=== PATIENT | female | born 2000 | race Caucasian/White ===

== ENCOUNTER 2023-05-31 07:57 | Outpatient (CLI) | payer BC, SELFPAY ==
--- NOTE | 2023-05-31 08:15 | US_ITS ---
Final Report Patient: DEVYN ODELL Facility:?[facility] Patient ID:?[id number] Site Patient ID:?[id number]. Site :?2002 Study:?US OB Pelvis OB TV-05/31/2023 8:59:03 AM Ordering Physician:AMADA JULY Final Report: INDICATION: First trimester scan, establish dates. COMPARISON: None. TECHNIQUE: Real-time he-scale imaging of the pelvis was performed. FINDINGS: Sonographic imaging demonstrates a single living intrauterine gestation. The embryo demonstrates a regular cardiac rate measuring 176 beats per minute. The embryo`s crown-rump length measurement of 1.9 cm corresponds to a gestational age of 8 weeks 3 days with a sonographic due date of 01/07/2024. There is a normal-appearing yolk sac. There are no gross abnormalities noted within the embryo at this early state of development. The gestational sac has a normal appearance. There is no evidence of a perigestational hemorrhage. The amount of fluid within the sac appears appropriate for gestational age. The cervix is closed. The myometrium appears normal. The ovaries are of normal size. Corpus luteal cyst left ovary. There are no suspicious fluid collections noted in the cul-de-sac. IMPRESSION: Normal first trimester OB ultrasound exam. Gestational age calculated at 8 weeks 3 days with a sonographic due date of 01/07/2024. Dictated by Urbano Motta MD @ 05/31/2023 9:09:47 AM (Electronic Signature)
== END 2023-05-31 07:58 | disposition home or self-care (01) ==
LOC: US 07:59
PROVIDERS: Visit Provider Physician Assistant
DX: Z34.91 Encounter for supervision of normal pregnancy, unspecified, first trimester (principal)
CPT/HCPCS: 76817; 86703; 86706; 86803; 86850; 86900; 86901; 87086; 87340; 87491; 87591

== ENCOUNTER 2023-05-31 09:41 | Outpatient (CLI) | payer BC, SELFPAY ==
[2023-05-31 16:32] LABS: Chlamydia DNA Amplified* Not Detected (No Detected); GC DNA Amplified* Not Detected (No Detected)
== END 2023-05-31 09:42 | disposition home or self-care (01) ==
PROVIDERS: Visit Provider Physician Assistant
DX: Z34.91 Encounter for supervision of normal pregnancy, unspecified, first trimester (principal)
CPT/HCPCS: 86592; 86703; 86704; 86706; 86762; 86787; 86803; 86850; 86900; 86901; 87086; 87340; 87491; 87591

== ENCOUNTER 2023-07-08 09:03 | Outpatient (CLI) | payer BC, SELFPAY | END 2023-07-08 09:04 | disposition home or self-care (01) | PROVIDERS: Visit Provider Obstetrics & Gynecology | DX: Z34.91 Encounter for supervision of normal pregnancy, unspecified, first trimester (principal); Z3A.13 13 weeks gestation of pregnancy | CPT/HCPCS: 87086 ==

== ENCOUNTER 2023-07-13 13:33 | Outpatient (CLI) | payer BC, SELFPAY | END 2023-07-13 13:34 | disposition home or self-care (01) | LOC: NFLDREF 13:34 | PROVIDERS: Visit Provider Obstetrics & Gynecology | DX: R39.15 Urgency of urination (principal) | CPT/HCPCS: 87086 ==

== ENCOUNTER 2023-07-21 10:16 | Outpatient (CLI) | payer BC, SELFPAY | END 2023-07-21 10:17 | disposition home or self-care (01) | LOC: NFLDREF 10:17 | PROVIDERS: Visit Provider Obstetrics & Gynecology | DX: N39.0 Urinary tract infection, site not specified (principal) | CPT/HCPCS: 87086 ==

== ENCOUNTER 2023-07-26 13:41 | Outpatient (CLI) | payer BC, SELFPAY ==
--- NOTE | 2023-07-26 14:00 | US_ITS ---
Patient: DEVYN ODELL Facility:?[facility] Patient ID:?[id number] Site Patient ID:?[id number]. Site :?2002 Study:?US-Abdomen Bilateral RENAL AND BLADDER-07/26/2023 3:03:01 PM Ordering Physician:?SORAYA DE LA ROSA Final Report: INDICATION: Retention of urine TECHNIQUE: Ultrasound renal and bladder complete. Rey-scale and color Doppler sonographic images were acquired of the kidneys and urinary bladder. COMPARISON: None FINDINGS: Right kidney:Normal cortical echogenicity. No solid renal mass. No hydronephrosis. 11.6 cm pole to pole. Resistive index . Left kidney:Normal cortical echogenicity. No solid renal mass. No hydronephrosis.11.7 cm pole to pole. Resistive index . Bladder: Unremarkable. Minimal postvoid residual. IMPRESSION: Unremarkable renal ultrasound. Dictated by Saulo Menendez MD @ 07/27/2023 12:26:19 PM Signed by:?Saulo Menendez MD @07/27/2023 12:26:19 PM (Electronic Signature)
--- NOTE | 2023-07-26 14:00 | US_ITS ---
Patient: DEVYN ODELL Facility:?[facility] Patient ID:?[id number] Site Patient ID:?[id number]. Site :?2002 Study:?US-OB Pelvis LIMITED-07/26/2023 3:02:24 PM Ordering Physician:?SORAYA DE LA ROSA Final Report: OB ULTRASOUND IVON by LMP: 01/08/2024. GA: 16 w, 2 d. Single. INDICATION: Retention of urine, pain and pressure. COMPARISON: 05/31/2023. CERVIX: Visualized. Measurement: 3.4 cm. POSITIONING: Breech. PLACENTA: Technique: Transabdominal. PLACENTA POSITION: Fundal, posterior. 5.9 cm from internal os. DOPPLER: heart rate: 159 bpm. Biometry: BPD: 3.6 cm. 17 w, 0 d, 80%. HC: 13.4 cm. 16 w, 6 d, 71%. AC: 11.6 cm. 17 w, 3 d, 84%. FL: 2.3 cm. 16 w, 6 d, 68%. FL/AC ratio: 19.60%. HC/AC ratio: 1.15. EFW: 181 g. Weight: 6 oz. age by this US: 17 w, 0 d. IVON by this US: 01/03/2024. Percentile by IVON: 91%. IMPRESSION: Estimated weight is at the 91st percentile. Saulo Menendez M.D. Body/Diagnostic Radiologist [email or web address] COLIN/rosita D& Transcribed: 12:56 p.mGregory becker/Dictated by: Saulo Menendez MD @ 07/27/2023 12:21:00 PM Signed by:?Saulo Menendez MD @07/27/2023 3:43:39 PM (Electronic Signature)
== END 2023-07-26 13:42 | disposition home or self-care (01) ==
LOC: US 13:42
PROVIDERS: Visit Provider Obstetrics & Gynecology
DX: R33.9 Retention of urine, unspecified (principal); N39.0 Urinary tract infection, site not specified; R35.0 Frequency of micturition
CPT/HCPCS: 76770; 76815

== ENCOUNTER 2023-08-15 08:02 | Outpatient (CLI) | payer BC, SELFPAY ==
--- NOTE | 2023-08-15 08:15 | US_ITS ---
Patient: DEVYN ODELL Facility:?[facility] Patient ID:?[id number] Site Patient ID:?[id number] Site :?2002 Study:?US-OB Pelvis BFAS-08/15/2023 8:54:45 AM Ordering Physician:?SORAYA DE LA ROSA Final Report: INDICATION: survey. TECHNIQUE: Conventional transabdominal two-dimensional grayscale ultrasound examination. COMPARISON: 07/26/2023 and 07/30/2023 FINDINGS: There is a living fetus with gestational age of 19 weeks 2 days by 1st trimester ultrasound dating and 19 weeks 5 days by today`s measurements. EDC based on 1st trimester ultrasound dating is 01/07/2024. BPD: 4.7 cm, 20 weeks 2 days Head circumference: 17.1 cm, 19 weeks 5 days Abdominal circumference: 13.9 cm, 19 weeks 2 days Femur length: 3.1 cm, weeks 5 days The weight is estimated at 297 grams, the 67th percentile. The heart rate is measured at 155 beats per minute and the rhythm appears regular. The head and spine are grossly intact. No gross facial abnormality is evident. The upper lip is intact. Four cardiac chambers are demonstrated. The heart and stomach appear to be on the same side. The diaphragm is intact. Two kidneys and a bladder are demonstrated. The cord insertion is normal and three cord vessels are noted. Four extremities are demonstrated. The amniotic fluid volume is within normal limits. The placenta is posterior with no evidence of previa. The cervical length is normal at 3.6 cm. IMPRESSION: 1. Living fetus with gestational age of 19 weeks 2 days by 1st trimester ultrasound dating and 19 weeks 5 days by today`s measurements. EDC based on 1st trimester ultrasound dating is 01/07/2024. 2. No anomaly evident. Dictated by Errol Sarmiento MD @ 08/15/2023 11:50:23 AM Signed by:?Errol Sarmiento MD @08/15/2023 11:50:23 AM (Electronic Signature)
== END 2023-08-15 08:03 | disposition home or self-care (01) ==
LOC: US 08:02
PROVIDERS: Visit Provider Obstetrics & Gynecology
DX: Z34.92 Encounter for supervision of normal pregnancy, unspecified, second trimester (principal); Z3A.19 19 weeks gestation of pregnancy
CPT/HCPCS: 76805

== ENCOUNTER 2023-10-10 07:58 | Outpatient (CLI) | payer BC, SELFPAY | END 2023-10-10 07:59 | disposition home or self-care (01) | LOC: NFLDREF 10-12 08:52 | PROVIDERS: Visit Provider Obstetrics & Gynecology | DX: Z34.02 Encounter for supervision of normal first pregnancy, second trimester (principal) | CPT/HCPCS: 86592 ==

== ENCOUNTER 2023-10-18 07:37 | Outpatient (CLI) | payer BC, SELFPAY | END 2023-10-18 07:38 | disposition home or self-care (01) | LOC: NFLDREF 09:57 | PROVIDERS: Visit Provider Obstetrics & Gynecology | DX: R73.09 Other abnormal glucose (principal); Z34.02 Encounter for supervision of normal first pregnancy, second trimester | CPT/HCPCS: 82951; 82952 ==

== ENCOUNTER 2023-10-20 16:08 | Outpatient (CLI) | payer BC, SELFPAY ==
[2023-10-20 16:12] VITALS: BP 130/78; PULSE 83; RESP 16; TEMP 36.9; O2SAT 98; BMI 30.5
[2023-10-20 16:56] VITALS: PULSE 66; O2SAT 99
[2023-10-20 17:00] VITALS: PULSE 73; O2SAT 92
[2023-10-20 17:01] VITALS: PULSE 74; O2SAT 100
[2023-10-20 17:05] VITALS: BP 111/66; PULSE 72
[2023-10-20 17:22] VITALS: BP 105/58; PULSE 65
[2023-10-20 17:55] LABS: Hematocrit 39.6 % (33.0-51.0); Hemoglobin* 13.8 gm/dL (12.0-16.0); Mean Corpuscular HGB Conc 35 gm/dL (32-36); Mean Corpuscular Hemoglobin 30 pg (26-34); Mean Corpuscular Volume 86 fL (80-100); Platelet Count* 176 K/uL (140-440); White Blood Count* 18.41 K/uL (4.50-11.00)
[2023-10-20] MEDS: 5 % DEXTROSE IN LAC RINGER'S 1,000 ML 125 ML IV (17:55)
[2023-10-20] MEDS: ACETAMINOPHEN 500 MG TABLET 1000 MG PO (17:58)
[2023-10-20] MEDS: METOCLOPRAMIDE HCL 5 MG/ML INJ 10 MG IVP (18:19)
[2023-10-20] MEDS: diphenhydrAMINE 50 MG/ML inj 25 MG IVP (18:22)
[2023-10-20 18:47] LABS: Slide Review Reflex No
[2023-10-20 18:55] LABS: Total Protein Urine 14 mg/dL
[2023-10-20 18:55] LABS: Alanine Aminotransferase* 20 U/L (4-35); Aspartate Amino Transferase* 31 U/L (12-35); Blood Urea Nitrogen* 5 mg/dL (5-24); Creatinine* 0.4 mg/dL (0.5-1.5); Est. Creatinine Clearance* 200.19; Estimated Glomerular Filt Rate 144 ml/min
[2023-10-20 18:56] LABS: Creatinine Urine 9.7 mg/dL; Protein Creatinine Ratio Urine 1.44 (0-0.19)
--- NOTE | 2023-10-20 19:36 | CRLHL7_ITS ---
For Patients: As a result of the Century Cures Act, medical imaging exams and procedure reports are released immediately into your electronic medical record. You may view this report before your referring provider. If you have questions, please contact your health care provider. INDICATION: Headache, visual changes, vision black out, finger numbness. TECHNIQUE: CTA head with contrast bolus tracking, 3D angiographic rendering using maximum intensity projection (MIP) and images permanently archived. FINDINGS: There is normal opacification of the intracranial vasculature. There is no large vessel occlusion. No aneurysm is identified. IMPRESSION: Unremarkable head CTA. Please note that all CT scans at this facility use dose modulation, iterative reconstruction, and/or weight-based dosing when appropriate to reduce radiation dose to as low as reasonably achievable. Dictated by Olegario Tenorio MD @ 10/21/2023 8:34:06 AM (Electronically Signed)
--- NOTE | 2023-10-20 19:36 | CRLHL7_ITS ---
For Patients: As a result of the Century Cures Act, medical imaging exams and procedure reports are released immediately into your electronic medical record. You may view this report before your referring provider. If you have questions, please contact your health care provider. INDICATION: Headache, visual changes, vision black out, finger numbness. TECHNIQUE: CTA neck with contrast bolus tracking, 3D angiographic rendering using maximum intensity projection (MIP) and images permanently archived. FINDINGS: There is no significant carotid artery stenosis or dissection. There is no significant vertebral artery stenosis or dissection. The soft tissues of the neck are within normal limits. The cervical spine is in normal alignment. IMPRESSION: Unremarkable neck CTA. Please note that all CT scans at this facility use dose modulation, iterative reconstruction, and/or weight-based dosing when appropriate to reduce radiation dose to as low as reasonably achievable. Dictated by Olegario Tenorio MD @ 10/21/2023 8:36:25 AM (Electronically Signed)
--- NOTE | 2023-10-20 19:36 | CRLHL7_ITS ---
For Patients: As a result of the Century Cures Act, medical imaging exams and procedure reports are released immediately into your electronic medical record. You may view this report before your referring provider. If you have questions, please contact your health care provider. Indication: RODRIGUEZ, VISUAL CHANGES, VISION BLACK OUT, FINGERS NUMB X 4 HOURS. PT IS 28 WEEKS Technique: CT of the head without contrast. Coronal and sagittal reformats. Bone and soft tissue windows. Comparison: No prior studies available for comparison at this institution. Findings: No acute intracranial hemorrhage or extra-axial collection. No evidence of acute cortical infarction. No mass effect or midline shift. Normal cerebral volume. The ventricles are normal in size, shape and contour. There is normal rizzo and white matter differentiation. The orbital contents are normal. No calvarial fractures. No lytic or sclerotic osseous lesions within the calvarium or skull base. Scalp and other imaged soft tissue structures are normal. Mastoid air cells are clear. Paranasal sinuses are well aerated. Secretions and fluid level in the left sphenoid sinus may represent acute sinusitis. Impression: 1. No acute intracranial abnormality. 2. Secretions and fluid level in the left sphenoid sinus may represent acute sinusitis. Please note that all CT scans at this facility use dose modulation, iterative reconstruction, and/or weight-based dosing when appropriate to reduce radiation dose to as low as reasonably achievable. Dictated by Urbano Michael MD @ 10/20/2023 8:52:49 PM (Electronically Signed)
[2023-10-20 20:47] LABS: PCR FLU A Negative PCR FLU A (Negative); PCR FLU B Negative PCR FLU B (Negative); PCR RSV Negative PCR RSV (Negative); SARS PCR* Negative SARS-CoV-2 (Negative)
--- NOTE | 2023-10-20 21:50 | PC.OBNST ---
NST Note NST Note Start: 10/20/23 17:01 Freq: ONCE Status: Discharge Protocol: Document 10/20/23 21:48 BRM (Rec: 10/20/23 21:50 BRM [id number]) NST Note 1 Para (# of births) 0 EDC 01/08/24 Gestational Age In Weeks & Days 28 Weeks & 4 Days Patient Presented with Complaint(s) of Headache,Other Other Complaints vision changes, loss of vision for 1 minute. right temporal headache started with black spots. left hand numbness lasting 20 minutes Reactive Yes Appropriate for Gestational Age Yes JONATHON Garcia RN Date 10/20/23 Reactive Yes Appropriate for Gestational Age Yes JONATHON Silvestre RN Date 10/20/23 OB NST charge Yes Complete NST Note via Write Note Yes The provider's electronic signature indicates the NST is reactive/appropriate for gestational age. *Note to provider: If an addendum is required, open the patient's chart and click on the note under the Nurse/Allied Health tab.
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
== END 2023-10-20 21:44 | disposition home or self-care (01) ==
LOC: ED 16:42 → OB OUT 18:19 → OB 18:27
PROVIDERS: Obstetrics & Gynecology; Visit Provider Emergency Medicine
DX: R51.9 Headache, unspecified (principal); H53.9 Unspecified visual disturbance
CPT/HCPCS: 36415; 59025; 70450; 70496; 70498; 82565; 82570; 84156; 84450; 84460; 84520; 85027; 87631; 99281; G0463; A9270; J1200; J2765; Q9967

== ENCOUNTER 2023-12-13 11:00 | Outpatient (CLI) | payer BC, SELFPAY ==
[2023-12-14 16:36] LABS: Strep B DNA Probe Negative (Negative)
[2023-12-14 20:12] LABS: Strep B Susceptibility Needed? No
== END 2023-12-13 11:01 | disposition home or self-care (01) ==
LOC: NFLDREF 11:00
PROVIDERS: Visit Provider Obstetrics & Gynecology
DX: Z34.03 Encounter for supervision of normal first pregnancy, third trimester (principal)
CPT/HCPCS: 87081; 87653

== ENCOUNTER 2023-12-13 11:02 | Outpatient (CLI) | payer BC, SELFPAY ==
[2023-12-13 11:47] VITALS: TEMP 36.6
[2023-12-13 11:56] VITALS: BP 113/65; PULSE 58
[2023-12-13 12:01] LABS: Hematocrit 36.6 % (33.0-51.0); Hemoglobin* 12.5 gm/dL (12.0-16.0); Mean Corpuscular HGB Conc 34 gm/dL (32-36); Mean Corpuscular Hemoglobin 30 pg (26-34); Mean Corpuscular Volume 87 fL (80-100); Platelet Count* 167 K/uL (140-440); Red Blood Count 4.21 m/uL (4.00-5.20); White Blood Count* 10.45 K/uL (4.50-11.00)
[2023-12-13 12:06] VITALS: BP 108/58; PULSE 69
[2023-12-13 12:13] LABS: Albumin* 3.6 g/dL (3.3-5.0)
[2023-12-13 12:14] LABS: Chloride* 105 mmol/L (96-114); Potassium* 4.2 mmol/L (3.6-5.1); Sodium* 135 mmol/L (135-149)
[2023-12-13 12:15] LABS: Slide Review Reflex No
[2023-12-13 12:16] LABS: Anion Gap 8 mEq/L (7-15); Aspartate Amino Transferase* 17 U/L (12-35); Bilirubin Total* 0.4 mg/dL (0.1-1.5); Carbon Dioxide* 22 mmol/L (20-32); Creatinine* 0.5 mg/dL (0.5-1.5); Estimated Glomerular Filt Rate 137 ml/min; Total Protein* 6.5 g/dL (6.0-8.3)
[2023-12-13 12:17] LABS: Alanine Aminotransferase* 12 U/L (4-35); Alkaline Phosphatase* 173 U/L (40-150); Blood Urea Nitrogen* 3 mg/dL (5-24); Calcium* 8.8 mg/dL (8.4-10.6); Glucose* 94 mg/dL (60-115); INR 0.89 (0.91-1.10); Lipase* 58 U/L (23-300); Partial Thromboplastin Time* 25 Seconds (23-33); Prothrombin Time 12.5 Seconds
[2023-12-13 12:24] VITALS: BP 106/59; PULSE 60
[2023-12-13 12:35] LABS: Creatinine Urine 112.8 mg/dL; Protein Creatinine Ratio Urine 0.04 (0-0.19); Total Protein Urine < 5 mg/dL
[2023-12-13 12:38] VITALS: BP 105/59; PULSE 71
[2023-12-13 12:47] LABS: Fibrinogen* 509 mg/dL (200-450)
[2023-12-13 13:08] VITALS: BP 116/65; PULSE 67
--- NOTE | 2023-12-13 14:32 | PC.OBNST ---
NST Note NST Note Start: 12/13/23 11:39 Freq: ONCE Status: Active Protocol: Document 12/13/23 13:15 HCR (Rec: 12/13/23 14:31 HCR [id number]) NST Note 1 Para (# of births) 0 EDC 01/08/24 Gestational Age In Weeks & Days 36 Weeks & 2 Days Patient Presented with Complaint(s) of Pain If Pain, describe location Epigastric/RUQ/Right pper back Reactive Yes Appropriate for Gestational Age Yes RN Roque Layton RN Date 12/13/23 Reactive Yes Appropriate for Gestational Age Yes JONATHON Lopez RN Date 12/13/23 OB NST charge Yes Complete NST Note via Write Note Yes The provider's electronic signature indicates the NST is reactive/appropriate for gestational age. *Note to provider: If an addendum is required, open the patient's chart and click on the note under the Nurse/Allied Health tab.
== END 2023-12-13 13:20 | disposition home or self-care (01) ==
LOC: OB OUT 11:04 → OB 11:04
PROVIDERS: Visit Provider Obstetrics & Gynecology
DX: O47.03 False labor before 37 completed weeks of gestation, third trimester (principal); Z3A.36 36 weeks gestation of pregnancy
CPT/HCPCS: 36415; 59025; 76705; 80053; 82570; 83690; 84156; 84520; 85027; 85384; 85610; 85730; G0463

== ENCOUNTER 2024-01-01 10:26 | Inpatient (IN) | payer BC, SELFPAY ==
[2024-01-01] VITALS (54 sets, daily range): BP systolic 80–140; BP diastolic 49–87; PULSE 60–104; RESP 16; TEMP 36.6–37.2; O2SAT 90–100; BMI 33.5
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
[2024-01-01] MEDS: LACTATED RINGERS 1000 ML 1,000 ML 1200 ML IV ×2 (13:35→14:30)
[2024-01-01 13:46] LABS: Basophils Percent Auto 0.2 % (0.0-3.0); Eosinophils Percent Auto 0.1 % (0.0-7.0); Hematocrit 36.7 % (33.0-51.0); Hemoglobin* 12.6 gm/dL (12.0-16.0); Immature Granulocytes Pct Auto 0.4 %; Lymphocytes Percent Auto 14.3 % (20-44); Mean Corpuscular HGB Conc 34 gm/dL (32-36); Mean Corpuscular Hemoglobin 29 pg (26-34); Mean Corpuscular Volume 86 fL (80-100); Monocytes Percent Auto 6.8 % (0.0-11.0); Neutrophils Percent Auto 78.2 % (42.0-72.0); Platelet Count* 195 K/uL (140-440); RDW Coefficient of Variation % 12.4 % (11.5-15.5); Red Blood Count 4.28 m/uL (4.00-5.20); White Blood Count* 13.77 K/uL (4.50-11.00)
[2024-01-01 13:49] LABS: Slide Review Reflex No
[2024-01-01] MEDS: BUPIVACAINE 0.25% PF 10 ML 10 ML ML EPIDURAL (14:07)
[2024-01-01] MEDS: ROPIVACAINE 0.2% 100 ml 100 ML 12 MG EPIDURAL (14:20)
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
[2024-01-01] MEDS: PHENYLEPHRINE 100 MCG/ML SYRINGE IVP ×2 (14:58→15:05)
[2024-01-01] MEDS: ePHEDrine sulfate 5 MG/ML inj 10 MG IVP (15:19)
--- NOTE | 2024-01-01 15:27 | PM.OBPNL ---
Subjective Time Seen by Provider: 15:00 Date Seen: 01/01/24 Narrative: Jayleen is a 23 yo woman at 39 weeks' gestation here for spontaneous labor. Since admission, she has had an epidural. She is still feeling some discomfort with contractions, but it has lessened. Objective Vital Signs: Last Vital Signs Temp 98.9 F 01/01/24 09:36 Pulse 81 01/01/24 15:09 Resp 16 01/01/24 09:36 BP 85/52 L 01/01/24 15:09 Pulse Ox 96 01/01/24 15:23 Comments: Gen - trembling Cervix - 5.5 / 100 / 0 station, bulging bag tracing Baseline 130 / accelerations present / no decelerations / moderate variability Contractions not registering on toco Assessment Status: Category l Tracing Comments: Reassuring GBS negative Labor Progress: About to enter active labor Maternal Status: Reassuring Plan Plan: Expectant management. AROM if decrease in contraction frequency.
[2024-01-01] MEDS: LACTATED RINGERS 1000 ML 1,000 ML 125 ML IV (16:49)
--- NOTE | 2024-01-01 17:02 | PM.OBPNL ---
Subjective Time Seen by Provider: 16:40 Date Seen: 01/01/24 Narrative: Jayleen is a 23 yo woman at 39 weeks' gestation here for spontaneous labor. Since admission, she has had an epidural. She is still feeling some discomfort with contractions, but it has lessened. Objective Vital Signs: Last Vital Signs Temp 98.9 F 01/01/24 09:36 Pulse 81 01/01/24 16:34 Resp 16 01/01/24 09:36 BP 113/60 01/01/24 16:34 Pulse Ox 99 01/01/24 15:29 Comments: Gen - trembling Cervix - 6 / 100 / +1 station AROM for clear fluid tracing Baseline 130 / accelerations present / no decelerations / moderate variability Contractions Q 2-6 minutes Assessment Status: Category l Tracing Comments: Reassuring GBS negative Labor Progress: Active labor Maternal Status: Reassuring Plan Plan: Expectant management. Begin pitocin if contraction frequency does not increase Anticipate
--- NOTE | 2024-01-01 20:56 | PM.OBPNL ---
Subjective Date Seen: 01/01/24 Narrative: I came in to assist Dr Vieira due to other patient needs. Pushing with Jayleen for the last hour with descent of head. Moderate variability through out stage 2 thus far with normal baseline. Scalp stim produced an increase in heart tones. Jayleen has great effort with coaching, but is getting tired. Small amounts of bright red bleeding noted since patient has been at +[address] Vieira resuming care. Objective Vital Signs: Last Vital Signs Temp 98 F 01/01/24 17:45 Pulse 85 01/01/24 20:20 Resp 16 01/01/24 09:36 BP 127/80 01/01/24 20:20 Pulse Ox 99 01/01/24 15:29 Assessment Status: Category ll
[2024-01-01] MEDS: OXYTOCIN 30 unit/500 ML in NS 30 UNIT/500 ML BAG 300 UNIT IVPB (21:48)
[2024-01-01] MEDS: LIDOCAINE 1 % PF 30 ML INJECTION (21:48)
--- NOTE | 2024-01-01 22:25 | W.PM.VAGD1_ITS ---
Procedure Procedure Done: [facility] Procedure Details: The patient is a 23 year-old G 1 P 0 woman admitted on 01/01/2024 at 39 Weeks, 0 Days gestation for labor.? Cervical exam on admission was 3 cm, 90%, +1 station with membranes intact in vertex presentation.? Contractions were every 3-4 minutes.? heart rate demonstrated baseline 150 bpm with moderate variability, positive accelerations, no decelerations; a category 1 tracing.? ? Labor onset:? 3:00 a.m. Labor Analgesia:? Epidural ? Pitocin:? No AROM occurred at 4:40 p.m. with clear fluid. ? Complete:? 6:55 p.m. ? Pushing:? 7:11 p.m. ? heart tones during second stage were reassuring. ? At 9:41 p.m. a viable female delivered in vertex MELISSA presentation over intact perineum via spontaneous vaginal delivery.? was placed on maternal abdomen.? Cord was clamped and cut after greater than 60 seconds.? Nose and mouth were bulb suctioned.? weight pending.? 8 at 1 minute and 9 at 5 minutes.? Shoulder dystocia: No.? Nuchal cord: No. ? Placenta delivered spontaneously and complete at 10:01 p.m. with a 3 vessel cord . ? Mother and were stable after delivery. ? Lacerations:? Second-degree perineal laceration and left periurethral laceration, repaired with 2-0 and 3-0 Vicryl, respectively, after infiltration with a total of 10 mL of 1% lidocaine. ? Blood loss: 75 mL. Blood loss measurement type: QBL ? Sponge and needles counts are correct.
[2024-01-01] MEDS: ACETAMINOPHEN 500 MG TABLET 1000 MG PO (23:23)
[2024-01-01] MEDS: IBUPROFEN 600 MG TABLET PO (23:44)
[2024-01-02 00:04] VITALS: BP 124/66; PULSE 72
[2024-01-02] MEDS: OXYCODONE 5 MG TABLET PO (00:05)
[2024-01-02 05:00] VITALS: BP 121/73; RESP 16; TEMP 36.6; O2SAT 97
[2024-01-02] MEDS: ACETAMINOPHEN 500 MG TABLET 1000 MG PO ×2 (05:17→13:57)
[2024-01-02 06:06] LABS: Hemoglobin* 10.9 gm/dL (12.0-16.0)
[2024-01-02] MEDS: IBUPROFEN 600 MG TABLET PO (08:05)
[2024-01-02 08:08] VITALS: BP 98/65; PULSE 63; PULSE 97; RESP 18; TEMP 36.4; O2SAT 97
[2024-01-02] MEDS: DOCUSATE SODIUM 100 MG CAPSULE PO (10:35)
--- NOTE | 2024-01-02 11:39 | P.OBPN_ITS ---
OB - PN:Subj Subjective Date Seen: 01/02/24 Patient comments OB post-: no complaints, pain well controlled, tolerating diet and flatus present [place] status: and doing well [place] feeding status: exclusively Narrative: Jayleen feels well.? Her pain is well controlled with current medications.? She has no new complaints.? Urinary output is adequate and she is voiding without difficulty.? Has a good appetite, is tolerating a general diet, is passing flatus, and has not had a bowel movement.? Has small amount of rubra lochia.? She is ambulating well.?Anticipated discharge home tomorrow morning. OB - PN: Obj Exam Physical Exam: Vital signs: Temp Pulse Resp BP Pulse Ox O2 Del Method 18 F L 63 18 98/65 97 Room Air 01/02/24 08:08 01/02/24 08:08 01/02/24 08:08 01/02/24 08:08 01/02/24 08:08 01/02/24 08:08 Narrative: GENERAL APPEARANCE:? normal affect, alert, no distress? MOOD:? appropriate? CHEST:? clear to auscultation and percussion? HEART:? regular rate and rhythm? ABDOMEN:? soft, non-tender the uterine fundus is U/2 and is appropriate for the stage of recovery.? PERINEUM:? mild edema of the perineum, there is a 2nd degree laceration that is healing well.? EXTREMITIES:? normal and no edema? OB - PN: Obj Data Labs Labs: Laboratory Results - last 24 hr 01/01/24 01/02/24 13:35 05:52 WBC 13.77 H RBC 4.28 Hgb 12.6 10.9 L Hct 36.7 MCV 86 MCH 29 MCHC 34 RDW Coeff of Mateo 12.4 Plt Count 195 Neut % (Auto) 78.2 H Lymph % (Auto) 14.3 L Avery % (Auto) 6.8 Eos % (Auto) 0.1 Baso % (Auto) 0.2 Neut # (Auto) 10.80 H Lymph # (Auto) 2.00 Avery # (Auto) 0.90 Eos # (Auto) 0.00 Baso # (Auto) 0.00 Abs Immat Gran (auto) 0.10 Imm/Tot Granulo (auto) 0.4 Blood Type A Positive Antibody Screen NEGATIVE OB - PN: A/P Delivery Assessment and Plan (1) care following vaginal delivery: Status: Acute (2) Lactating mother: Status: Acute Plan day: 1 Plan: routine care Comments: Anticipate discharge home tomorrow.
[2024-01-02 12:22] VITALS: BP 105/69; PULSE 83; RESP 20; TEMP 36.6; O2SAT 97
--- NOTE | 2024-01-02 14:32 | PM.ANPOST ---
Post Anesthesia Note Post Anesthesia Note Patient seen: Inpatient Respiratory Status: adequate Cardiovascular Status: adequate Mental Status: baseline Pain: adequate Temp: baseline Anesthetic awareness: no Complications: none Follow care: none
[2024-01-02 15:45] VITALS: BP 115/78; PULSE 76; RESP 18; TEMP 36.6; O2SAT 97
[2024-01-02 20:12] VITALS: BP 115/77; PULSE 78; RESP 16; TEMP 36.6; O2SAT 97
[2024-01-03] MEDS: ACETAMINOPHEN 500 MG TABLET 1000 MG PO ×2 (02:14→08:49)
[2024-01-03 02:30] VITALS: BP 128/68; PULSE 78; RESP 16; TEMP 36.6; O2SAT 97
[2024-01-03 03:13] VITALS: BP 118/75
[2024-01-03] MEDS: IBUPROFEN 600 MG TABLET PO (05:11)
[2024-01-03] MEDS: LACTATED RINGERS 500 ML 500 ML IV (05:24)
[2024-01-03] MEDS: DOCUSATE SODIUM 100 MG CAPSULE PO (08:48)
[2024-01-03 08:52] VITALS: BP 118/74; PULSE 66; RESP 16; TEMP 36.6; O2SAT 97
--- NOTE | 2024-01-03 09:19 | P.DS_ITS ---
DS: Providers Provider Date Seen: 01/03/24 Date of admission: 01/01/24 10:26 Primary care physician: Not a Local Provider Admitting Clinician: Michela Vieira MD Attending Physician on discharge: Gianni RIVERA Date of Discharge: 01/03/24 DS: Diagnosis Discharge Diagnosis (1) Lactating mother: Status: Acute (2) care following vaginal delivery: Status: Acute Exam Narrative: Exam Narrative: GENERAL APPEARANCE:? normal affect, alert, no distress MOOD:? appropriate CHEST:? clear to auscultation HEART:? regular rate and rhythm ABDOMEN:? soft, non-tender the uterine fundus is At Umbilicus, Midline and is appropriate for the stage of recovery. PERINEUM:? minimal edema of the perineum, there is no laceration EXTREMITIES:? normal and minimal edema Const: Vital Signs, click to edit/add: Vital Signs - 24 hr 01/02/24 12:22 01/02/24 15:45 01/02/24 20:12 Temperature 97.8 F 97.9 F 97.9 F Pulse Rate [Pulse Oximeter] 83 76 78 Respiratory Rate 20 18 16 Blood Pressure [Ri ght Arm] 105/69 115/78 115/77 Pulse Oximetry 97 97 97 Oxygen Delivery Me thod Room Air Room Air Room Air 01/03/24 02:30 01/03/24 03:13 01/03/24 08:52 Temperature 97.9 F 97.8 F Pulse Rate [Pulse Oximeter] 78 66 Respiratory Rate 16 16 Blood Pressure [Ri ght Arm] 128/68 118/75 118/74 Pulse Oximetry 97 97 Oxygen Delivery Me thod Room Air Room Air OB - DS: Summary Hospital Course Hospital Course: Jayleen is a 23 y.o. G 1 P 1001 who was admitted [facility] for spontaneous [facility] .? She had a NVD that was uncomplicated. The patient feels well.? The pain is well controlled with current medications, except for the Spinal RODRIGUEZ that anesthes ia is managing.? She has no new complaints.? Urinary output is adequate and she is voiding without difficulty.? Has a good appetite, is tolerating a general diet, is passing flatus, and has not had a bowel movement.? Has scant amount of rubra lochia.? She is ambulating well. She is and reports it is going well.?VSS. She is planning condoms for prevention.? ?? Problems: SPINAL RODRIGUEZ? ?? Peripartum Data delivery method: Vaginal Laceration description: None Episiotomy description: None complications: none [place] Gender: Female Discharge Plan: Home Status at Discharge Functional status at discharge: independent ambulation Time Spent with Patient Time attestation: Total time spent providing and/or coordinating discharge services: Time spent: Less than 30 minutes Discharge Plan Discharge Disposition: Home, Self-Care Date of Admission: 01/01/24 10:26 Attending Provider on Discharge: Rachel Cool Primary Care Provider: Provider,Not a Local Condition: Stable Anticipated Discharge Date/Time: 01/03/24 12:00 Discharge Medications: Discontinued acetaminophen [Tylenol Extra Strength] 500 mg tablet 500 mg PO Q6H PRN hydroxyzine HCl 25 mg tablet 25 - 50 mg PO QHS Qty: 60 6RF prochlorperazine maleate [Compazine] 5 mg tablet 5 mg PO TID PRN (Reason: nausea and vomiting) Qty: 15 0RF Discharge Orders: Discharge Order (Routine); Ordered 01/03/24 Ordered By: Rachel Cool Patient Education: OB Care, OB Vaginal/Breast Feeding Additional Instructions: Discharge instructions were reviewed with the patient including signs and symptoms of infection and home going medications Nothing vaginally for 6 weeks: no tampons or intercourse Do not drive while taking narcotic pain medication(s) Off Work or School for 6 weeks Symptoms to report to doctor: * Bleeding that saturates more than one pad per hour * Passing clots larger than the size of a golf ball * Pain not relieved by prescribed medication * Fever above 100.4 degrees Fahrenheit * A foul vaginal odor * Difficulty in emotions, mood, and functions * Thoughts of hurting yourself and/or * Painful, reddened area in your breast * Any drainage, redness, or tenderness in your IV/epidural site * Severe headache that doesn't improve after taking medications * Changes in vision, including temporary loss of vision, blurred vision, and/or light sensitivity * Upper abdominal pain (usually under ribs on the right side) * Decrease in urination or painful, frequent urinating * Chest pain * Shortness of breath * Tenderness or pain with redness and/swelling in the calf(s) of your leg 2-week visit: discuss feeding concerns, review control options and screen for anxiety/depression. 6-week visit for an annual exam. consultation services are available to all mothers and babies for the first year after delivery.? To make an appointment, please call [phone]. Activity Level: Activity as Tolerated Discharge Diet: Regular Follow Up Appointments: [facility] [Provider Group] Forms: [employer] Info Instructions
[2024-01-04 09:25] LABS: Rapid Plasma Reagin (RPR) Non Reactive (Non Reactive)
== END 2024-01-03 12:55 | disposition home or self-care (01) | DRG 560 ==
LOC: OB OUT 10:26 → OB 10:26
PROVIDERS: Admitting Provider Obstetrics & Gynecology; Visit Provider Obstetrics & Gynecology
DX: O70.1 Second degree perineal laceration during delivery (principal); O71.82 Other specified trauma to perineum and vulva; Z3A.39 39 weeks gestation of pregnancy; Z37.0 Single live birth; Z86.59 Personal history of other mental and behavioral disorders; Z62.810 Personal history of physical and sexual abuse in childhood; Z72.0 Tobacco use; G43.909 Migraine, unspecified, not intractable, without status migrainosus; O89.4 Spinal and epidural anesthesia-induced headache during the puerperium
CPT/HCPCS: 01967; 36415; 85018; 85025; 86592; 86850; 86900; 86901; A9270; J0665; J2001; J2371; J2795; J7120

== ENCOUNTER 2024-01-06 10:50 | Outpatient (CLI) | payer BC, SELFPAY ==
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
== END 2024-01-06 10:51 | disposition home or self-care (01) ==
PROVIDERS: Visit Provider Obstetrics & Gynecology
DX: Z39.1 Encounter for care and examination of lactating mother (principal)
CPT/HCPCS: G0463

== ENCOUNTER 2024-01-17 13:06 | Outpatient (CLI) | payer BC, SELFPAY | END 2024-01-17 13:07 | disposition home or self-care (01) | PROVIDERS: Visit Provider Registered Nurse | DX: R03.0 Elevated blood-pressure reading, without diagnosis of hypertension (principal); Z39.2 Encounter for routine postpartum follow-up | CPT/HCPCS: 82565; 84450; 84460; 84520 ==

== ENCOUNTER 2024-06-07 13:35 | Outpatient (CLI) | payer BC, SELFPAY | END 2024-06-07 13:36 | disposition home or self-care (01) | LOC: NFLDREF 13:35 | PROVIDERS: Visit Provider Physician Assistant | DX: Z12.4 Encounter for screening for malignant neoplasm of cervix (principal) | CPT/HCPCS: 87624; 87625; 88141; 88142 ==

== ENCOUNTER 2025-03-20 12:45 | Outpatient (CLI) | payer BC, SELFPAY ==
--- NOTE | 2025-03-20 13:00 | CRLHL7_ITS ---
For Patients: As a result of the Cures Act, medical imaging exams and procedure reports are released immediately into your electronic medical record. You may view this report before your referring provider. If you have questions, please contact your health care provider. OB ULTRASOUND INDICATION: Dating and viability. TECHNIQUE: Real time grayscale imaging of the fetus was performed. Transvaginal. Transvaginal imaging performed to better demonstrate the endometrium and ovaries. LMP: 01/23/2025. IVON by LMP: 10/30/2025. GA: 8 w, 0 d. Previous US: No. CRL: 1.5 cm. 7 w 6 d. IVON: 10/31/2025. FHR: 163 BPM. Gestational sac: 2.9 cm. Appears within normal limits. Yolk sac: 2.9 mm. Appears within normal limits. Right ovary: 3.5 x 2.2 x 2.7 cm. CL. Left ovary: N/V. IMPRESSION: 1. Single living intrauterine measures 7 weeks 6 days with sonographic due date 10/31/2025. 2. Right inferior subchorionic hemorrhage measures 1.5 x 1.0 x 0.6 cm. Urbano Motta M.D. Diagnostic Radiologist [email or web address] MADI/rosita becker/Dictated by: Urbano Motta MD @ 03/20/2025 3:54:00 PM (Electronically Signed)
== END 2025-03-20 12:46 | disposition home or self-care (01) ==
LOC: US 12:46
PROVIDERS: Visit Provider Advanced Practice Midwife
DX: O20.9 Hemorrhage in early pregnancy, unspecified (principal); Z3A.01 Less than 8 weeks gestation of pregnancy
CPT/HCPCS: 76817

== ENCOUNTER 2025-03-20 14:46 | Outpatient (CLI) | payer BC, SELFPAY | END 2025-03-20 14:47 | disposition home or self-care (01) | PROVIDERS: Visit Provider Advanced Practice Midwife | DX: Z34.91 Encounter for supervision of normal pregnancy, unspecified, first trimester (principal) | CPT/HCPCS: 83020; 83021; 85660; 86703; 86704; 86706; 86762; 86780; 86787; 86803; 86850; 86900; 86901; 87086; 87340 ==